=== PATIENT | female | born 1955 | race Caucasian/White ===

== ENCOUNTER 2025-04-18 03:46 | Inpatient (IN) | payer MEDICARE, MEDICAID ==
[~2025-04-18] VITALS: Ht 167.6 cm; Wt 86.1 kg
[2025-04-18] VITALS (14 sets, daily range): BP systolic 100–131; BP diastolic 61–83; PULSE 83–102; RESP 14–20; TEMP 96.6–99.9; O2SAT 92–99
[~2025-04-18 03:46] MED LIST: ANAS1TAB7 PO; CITA40TA12; GABA-339 PO; OMEP-448; PRAV20TA3; QUET100T47 PO; ROPI2TAB27 PO; TIOTCAP INH; TRAZ-228; VALS1TAB57 PO
[2025-04-18] MEDS ORDERED: LACTATED RINGER'S 1,550 ML IV ONE (04:00)
--- NOTE | 2025-04-18 04:04 | ED.PDOC ---
SOB-HPI HPI Comments 69-year-old female who came via EMS for shortness of breath. Patient does have history of hypertension, CHF and COPD. Has been having productive cough and shortness a breath for the past few hours, progressively worsening prompted patient to come to the ER. Noted also mild grade fever. Denies any acute chest pains. Paramedics also report patient has a fever with them, 101 Chief Complaint: Shortness of Breath Time Seen by MD: 04:04 Primary Care Provider: ASCENCION Rodríguez notes: Scheduling Representative Notes Information Source: Patient, Emergency Med Personnel Mode of Arrival: EMS Severity: Moderate Timing: Hours Duration: Intermittent Context: At Rest, With Light Exertion History of: COPD, CHF Prehospital treatment: Breathing Tx Associated Signs and Symptoms: Wheeze, Cough Past Medical History PAST MEDICAL HISTORY: Anxiety, COPD, Depression, HTN Past Medical History (Other): Bipolar disorder Surgical History: Denies all surgeries ASSISTIVE TECHNOLOGY TRAINER History: No Pertinent ASSISTIVE TECHNOLOGY TRAINER History Family History Family History: Unobtainable Social History Smoker: Cigarettes, Less Than 1 Pack/Day Alcohol: Denies ETOH Use Drugs: Denies Drug Use Lives In: Home Constitutional: reports: fever; denies: chills, diaphoresis, fatigue, malaise, sweats, weakness, others EENTM: denies: blurred vision, double vision, ear bleeding, ear discharge, ear drainage, ear pain, ear ringing, eye pain, eye redness, hearing loss, mouth pain, mouth swelling, nasal discharge, nose bleeding, nose congestion, nose pain, photophobia, tearing, throat pain, throat swelling, voice changes, others Respiratory: reports: cough, SOB at rest, shortness of breath, wheezing; denies: hemoptysis, orthopnea, SOB with excertion, stridor, others Cardiovascular: denies: chest pain, dizzy spells, diaphoresis, Dyspnea on exertion, edema, irregular heart beat, left arm pain, lightheadedness, palpitations, PND, syncope, others Gastrointestinal: denies: abdomen distended, abdominal pain, blood streaked bowels, constipated, diarrhea, dysphagia, difficulty swallowing, hematemesis, melena, nausea, poor appetite, poor fluid intake, rectal bleeding, rectal pain, vomiting, others Genitourinary: denies: abnormal vagina bleeding, burning, dyspareunia, dysuria, flank pain, frequency, hematuria, incontinence, pain, , vagina discharge, urgency, others Neurological: denies: dizziness, fainting, headache, left sided numbness, left sided weakness, numbness, paresthesia, pre-existing deficit, right sided numbness, right sided weakness, seizure, speech problems, tingling, tremors, weakness, others Musculoskeletal: denies: back pain, gout, joint pain, joint swelling, muscle pain, muscle stiffness, neck pain, others Integumetry: denies: bruises, change in color, change in hair/nails, dryness, laceration, lesions, lumps, rash, wounds, others Allergic/Immunocompromised: denies: Difficulty Healing, Frequent Infections, Hives, Itching, others Hematologic/Lymphatic: denies: anemia, blood clots, easy bleeding, easy bruising, swollen glands, others Endocrine: denies: excessive hunger, excessive sweating, excessive thirst, excessive urination, flushing, intolerance to cold, intolerance to heat, unexplained weight gain, unexplained weight loss, others Psychiatric: denies: anxiety, bipolar disorder, depression, hopeless, panic disorder, schizophrenia, sleepless, suicidal, others Physical Exam General Appearance: No Apparent Distress, Normal HEENT: Normal ENT Inspection, Pharynx Normal, TMs Normal Neck: Full Range of Motion, Non-Tender, Normal, Normal Inspection Respiratory: Chest Non-Tender, No Accessory Muscle Use, No Respiratory Distress, Wheezing (Right lung) Cardiovascular: No Edema, No JVD, No Murmur, No Gallop, Normal Peripheral Pulses, Regular Rate/Rhythm Breast Exam: Deferred Gastrointestinal: No Organomegaly, Non Tender, No Pulsatile Mass, Normal Bowel Sounds, Soft Genitalia: Deferred Pelvic: Deferred Rectal: Deferred Extremities: No calf tenderness, Normal capillary refill, Normal inspection, Normal range of motion, Non-tender, No pedal edema Musculoskeletal : Apperance: Normal Neurologic: Alert, investment broker II-XII nml as Tested, No Motor Deficits, Normal Affect, Normal Mood, No Sensory Deficits Cerebellar Function: Normal Reflexes: Normal Skin: Dry, Normal Color, Warm Lymphatic: No Adenopathy EKG EKG : Pulse Rate (adult): 99 Cardiac Rhythm: NSR Was a procedure done? Was a procedure done?: No Differential Dx Differential Diagnosis: Asthma, Bronchitis, CHF, COPD, Myocardial infarction, Pneumonia, Respiratory Distress X-Ray, Labs, Meds, VS Vital Signs Date Time Temp Pulse Resp B/P (MAP) Pulse Ox O2 Delivery O2 Flow Rate FiO2 04/18/25 04:22 102 20 97 Nasal Cannula* 4 36 04/18/25 04:22 99.9 102 20 121/83 (96) 98 99.9 04/18/25 04:04 99 04/18/25 03:56 99.0 97 20 136/62 96 99.0 04/18/25 03:55 99 Lab Test 04/18/25 04:00 Range/Units White Blood Count 9.3 4.4-10.8 10^3/uL Red Blood Count 3.64 L 4.0-5.20 10^6/uL Hemoglobin 10.3 L 12.2-16.2 g/dL Hematocrit 32.2 L 36.0-46.0 % Mean Corpuscular Volume 88.3 80.0-100.0 fL Mean Corpuscular Hemoglobin 28.2 28.0-32.0 pg Mean Corpuscular Hemoglobin Concent 31.9 L 32.0-36.0 g/dL Red Cell Distribution Width 16.0 H 11.8-14.3 % Platelet Count 266 140-450 10^3/uL Mean Platelet Volume 6.8 L 6.9-10.8 fL Neutrophils (%) (Auto) 69.3 37.0-80.0 % Lymphocytes (%) (Auto) 21.6 10.0-50.0 % Monocytes (%) (Auto) 5.9 0.0-12.0 % Eosinophils (%) (Auto) 3.0 0.0-7.0 % Basophils (%) (Auto) 0.2 0.0-2.0 % Neutrophils # (Auto) 6.5 1.6-8.6 10 ^3/uL Lymphocytes # (Auto) 2.0 0.4-5.4 10 ^3/uL Monocytes # (Auto) 0.5 0-1.3 10 ^3/uL Eosinophils # (Auto) 0.3 0-0.8 10 ^3/uL Basophils # (Auto) 0 0-0.2 10 ^3/uL Nucleated Red Blood Cells 0.1 % Prothrombin Time 10.5 9.3-11.8 sec Prothrombin Time INR 0.99 0.9-1.15 Activated Partial Thromboplast Time 28.6 24.5-34.5 SEC Sodium Level 144 136-145 mmol/L Potassium Level 4.5 3.5-5.1 mmol/L Chloride Level 102 98-107 mmol/L Carbon Dioxide Level 37 H 20-31 mmol/L Anion Gap 5 5-15 Blood Urea Nitrogen 29 H 9-23 mg/dL Creatinine 1.14 H 0.550-1.02 mg/dL Glomerular Filtration Rate Calc 51 >90 mL/min BUN/Creatinine Ratio 25.4 H 10.0-20.0 Serum Glucose 106 74-106 mg/dL Lactic Acid Level 0.8 0.4-2.0 mmol/L Calcium Level 9.5 8.7-10.4 mg/dL Total Bilirubin < 0.2 L 0.2-1.0 mg/dL Aspartate Amino Transferase (AST) 14 13-40 U/L Alanine Aminotransferase (ALT) 9 7-40 U/L Alkaline Phosphatase 90 46-116 U/L Total Protein 7.0 5.7-8.2 g/dL Albumin 4.2 3.2-4.8 g/dL Time of 1ST Reevaluation: 03:59 Reevaluation 1ST: Unchanged Patient Education/Counseling: Diagnosis, Treatment Family Education/Counseling: No Family Present SEPSIS Sepsis Screen Recent Procedure: No On Antibiotic Therapy: No Respiratory Rate >20: Yes Heart Rate >90: Yes Temp<36 C (96.8 F) or >38.3 C: No SBP <90 or MAP <65 mmHG: No New Acute Mental Status Change: Yes Is the patient on CPAP, BIPAP,: No IV fluid challenge completed?: No (pt has chf, is volume overloaded, so ivf held) Physician Orders Urinalysis (04/18/25 03:50) Chest Portable (04/18/25 03:50) Accucheck (04/18/25 03:50) Blood Culture (04/18/25 03:50) Cefepime 1gm/50ml (Maxipime 1gm/50ml) (04/18/25 06:00) Notify Md If Map <65 Or Bp<90 (04/18/25 03:50) If Map<65 Start Vasopressor (04/18/25 03:50) Sepsis Reassesment After Fluid (04/18/25 04:50) Electrocardigram (04/18/25 03:58) Vital Signs Date Time Temp Pulse Resp B/P (MAP) Pulse Ox O2 Delivery O2 Flow Rate FiO2 04/18/25 04:22 102 20 97 Nasal Cannula* 4 36 04/18/25 04:22 99.9 102 20 121/83 (96) 98 99.9 04/18/25 04:04 99 04/18/25 03:56 99.0 97 20 136/62 96 99.0 04/18/25 03:55 99 Laboratory Tests Test 04/18/25 04:00 Lactic Acid Level 0.8 mmol/L (0.4-2.0) White Blood Count 9.3 10^3/uL (4.4-10.8) Reassessment Post Fluid SEPSIS FOCUS EXAM(REASSESSMENT pt did not have a fever here, nor any vss that fits SIRS Date of Reassessment: Apr 18, 2025 Time of Reassessment: 04:47 Pulse Location: Radial Pulse Strength: Normal Capillary Refill Exam: < 3 seconds Skin Temperature: Warm Skin Moisture: Dry Skin Tugor: WNL Skin Color: WNL Fingernail Color: WNL Departure 1 Departure Time of Disposition: 04:48 Impression: Primary Impression: CHF (congestive heart failure) Qualified Codes: I50.43 - Acute on chronic combined systolic (congestive) and diastolic (congestive) heart failure Disposition: ADMITTED INPATIENT Admit to: [facility] Condition: Stable Discharged With: Self Critical Care Note Critical Care Time?: Yes (55 min-critical care time only) Critical care comment: Shortness a breath Due to patient's altered mental status in paramedics complain that the patient had a fever with them in addition patient has had a cough sepsis order were initiated immediately upon patient's arrival. However on examination patient does have some rales in addition to the wheezes suggesting CHF. Patient has a history of CHF as well, therefore sepsis IV fluid bolus was held Due to concerns for patients condition deteriorating, the care required my highest level of attention and readiness to intervene. I assessed the patient, reviewed the medical records, ordered the appropriate tests and treatments, then reassessed for results and responsiveness. I communicated with medical personnel and consultants and formulated a plan of care. Total critical care time excludes any procedures Stability Stability form required: No Heart Score Heart Score: Heart Score Response (Comments) Value History Moderate Suspicious 1 EKG Normal 0 Age >65 2 Risk Factors >3 or Hx ASHD 2 Troponin Normal limit 0 Total 5 I personally scribed for PAMELA BAHENA MD ([facility]) on 04/18/25 at 04:04. Electronically submitted by Lalo Fagan ([facility]). PAMELA BAHENA MD Apr 18, 2025 04:04
[2025-04-18 04:23] LABS: Hematocrit 32.2 % (36.0-46.0); Hemoglobin 10.3 g/dL (12.2-16.2); Mean Corpuscular Hemoglobin 28.2 pg (28.0-32.0); Mean Corpuscular Volume 88.3 fL (80.0-100.0); Nucleated Red Blood Cells % 0.1 %
--- NOTE | 2025-04-18 04:30 | DVH ---
CHEST RADIOGRAPH Indication: sob Technique: Single frontal view of the chest was obtained COMPARISON: XR CHEST 1 VIEW on DOS: 01/06/25, CT CT ANGIO CHEST CONTRAST on DOS: 04/13/24, XY CHEST XRAY 1 VIEW on DOS: 04/11/24, XY CHEST PORTABLE on DOS: 04/08/24, XR CHEST 1 VIEW on DOS: 03/28/24 FINDINGS: Lines and Tubes: None Lungs: Diffuse increased prominence of the pulmonary vasculature. No evidence of focal consolidation . Pleura: No effusion. No pneumothorax. Cardiomediastinal contours: Unremarkable Bones: Unremarkable IMPRESSION: 1. Mild pulmonary vascular congestion.
[2025-04-18 04:40] LABS: Albumin 4.2 g/dL (3.2-4.8); Alkaline Phosphatase 90 U/L (46-116); Anion Gap 5 (5-15); BUN/Creatinine Ratio 25.4 (10.0-20.0); Calcium 9.5 mg/dL (8.7-10.4); Chloride 102 mmol/L (98-107); INR 0.99 (0.9-1.15); Partial Thromboplastin Time 28.6 SEC (24.5-34.5); Potassium 4.5 mmol/L (3.5-5.1); Prothrombin Time 10.5 sec (9.3-11.8); Sodium 144 mmol/L (136-145); Total Protein 7.0 g/dL (5.7-8.2)
[2025-04-18 04:44] LABS: Alanine Aminotransferase 9 U/L (7-40); Bilirubin, Total < 0.2 mg/dL (0.2-1.0); Blood Urea Nitrogen 29 mg/dL (9-23); Carbon Dioxide 37 mmol/L (20-31); Glucose 106 mg/dL (74-106)
[2025-04-18] MEDS: FUROSEMIDE 40 MG/4 ML VIAL IV ONE (04:56)
[2025-04-18 05:25] LABS: Urine Protein, UAD TRACE (Negative); Urine WBC Clumps PRESENT /hpf (None Seen)
[2025-04-18] MEDS ORDERED: MORPHINE SULFATE INJ 2 MG/ml SYRG IV PRN (05:45)
[2025-04-18] MEDS ORDERED: NITROGLYCERIN 0.4 MG SL TAB SL PRN (05:45)
[2025-04-18] MEDS ORDERED: ONDANSETRON HCL 4 MG/2 ML VIAL IV PRN (05:45)
--- NOTE | 2025-04-18 05:59 | DVHHP2 ---
History of Present Illness Reason for Visit: COPD with acute exacerbation History of Present Illness The patient is a 69-year-old female with past medical history of depression, bipolar disorder, hypertension, anxiety, and COPD who presented to [facility] ED with complaint of shortness of breaths. Patient reports she has been has been having productive cough, weakness, low-grade fever, wheezing, and difficulty breathing for the past 1 day. Patient was seen and evaluated in the ED, laboratory data shows WBC 9.3, hemoglobin 10.3, hematocrit 32.2, platelets 266, sodium 144, potassium 4.5, BUN 29, creatinine 1.14, glucose 106, calcium 9.5, blood pressure 122/84, heart rate 102, temperature 99.9 F, O2 saturation 97% on oxygen. Urinalysis positive for urinary tract infection. Chest x-ray revealing mild pulmonary vascular congestion. Patient was started on IV Solu- Medrol, please see medication orders section in the computer. On my assessment, patient denied chest pain, no headache, no dizziness, currently on oxygen, no diaphoresis, no diarrhea, no nausea, no vomiting, no fever, no chills. Patient was admitted for further evaluation and medical management. Past Medical History Anxiety, COPD, Depression, HTN, Bipolar disorder Past Surgical History Denies all surgeries Family History Reviewed, noncontributory to the management of this case. Past Social History Patient lives at home, smokes cigarettes less than 1 pack per day, denies alcohol or illicit drugs abuse. Review of Systems Constitutional: Yes: Fever, Weakness; No: Chills, Sweats, Malaise, Other Eyes: No: Pain, Vision change, Conjunctivae inflammation, Eyelid inflammation, Other, Redness ENT: No: Ear pain, Ear discharge, Nose pain, Nose discharge, Nose congestion, Mouth pain, Mouth swelling, Throat pain, Throat swelling, Other Respiratory: Cough, Shortness of breath, Wheezing, Other (SOB at rest); No: Dry, SOB with excertion, Hemoptysis, Pleuritic Pain, Sputum, Wheezing Cardiovascular: No: Chest Pain, Palpitations, Orthopnea, Paroxysmal Noc. Dys pnea, Edema, Lt Headedness, Other Gastrointestinal: No: Nausea, Vomiting, Abdominal Pain, Diarrhea, Constipation, Melena, Hematochezia, Other Genitourinary: No Dysuria, No Frequency, No Incontinence, No Hematuria, No Retention, No Other Musculoskeletal: No: other, neck pain, shoulder pain, arm pain, back pain, hand pain, leg pain, foot pain Skin: No: Rash, Lesions, Jaundice, Bruising, Other Neurological: No: Weakness, Numbness, Incoordination, Change in speech, Confusion, Seizures, Other Allergies: Coded Allergies: NO KNOWN ALLERGIES (Unverified , 01/24/12) Medications Current Medications Medications Dose Ordered Sig/Arnold Route Start Time Stop Time Status Last Admin Dose Admin Cefepime HCl 50 ml @ 12.5 mls/hr Q8HR IV 04/18/25 06:00 UNV Exam Vital Signs Vital Signs Date Time Temp Pulse Resp B/P (MAP) Pulse Ox O2 Delivery O2 Flow Rate FiO2 04/18/25 04:56 121/68 04/18/25 04:22 102 20 97 Nasal Cannula* 4 36 04/18/25 04:22 99.9 99.9 General Appearance: Alert, Oriented X3, Cooperative, No acute distress HEENT: Atraumatic, PERRLA, EOMI, Mucous membr. moist/pink Respiratory: Normal air movement Cardiovascular: Regular rate, Normal S1, Normal S2, No murmurs Abdominal: Normal bowel sounds, Soft, No tenderness, No hepatospenomegaly, No masses Extremities: No clubbing, No cyanosis, No edema, Normal pulses, No tenderness/swelling Skin: No rashes, No breakdown, No significant lesion Neuro: Normal speech, Normal tone, Sensation intact, Cranial nerves 3-12 NL, Reflexes 2+, Other (Generalized weakness) Psych/Mental Status: Mental status NL, Mood NL Labs/Xrays Labs Test 04/18/25 05:02 04/18/25 04:00 Range/Units Urine Color Colorless Yellow Urine Clarity Turbid H Clear Urine pH 5.0 5.0-9.0 Urine Specific [place] 1.021 1.001-1.035 Urine Protein Trace H Negative Urine Ketones Negative Negative Urine Blood Negative Negative /uL Urine Nitrite Negative Negative Urine Bilirubin Negative Negative Urine Urobilinogen Normal Negative mg/dL Urine Leukocyte Esterase 2+ Negative /uL Urine RBC 12 0 - 4 /hpf Urine WBC Clumps Present None Seen /hpf Urine Microscopic WBC 386 H 0-5 /HPF Urine Squamous Epithelial Cells None seen <5 /hpf Urine Bacteria Few H None Seen /hpf Urine Glucose Normal Normal mg/dL White Blood Count 9.3 4.4-10.8 10^3/uL Red Blood Count 3.64 L 4.0-5.20 10^6/uL Hemoglobin 10.3 L 12.2-16.2 g/dL Hematocrit 32.2 L 36.0-46.0 % Mean Corpuscular Volume 88.3 80.0-100.0 fL Mean Corpuscular Hemoglobin 28.2 28.0-32.0 pg Mean Corpuscular Hemoglobin Concent 31.9 L 32.0-36.0 g/dL Red Cell Distribution Width 16.0 H 11.8-14.3 % Platelet Count 266 140-450 10^3/uL Mean Platelet Volume 6.8 L 6.9-10.8 fL Neutrophils (%) (Auto) 69.3 37.0-80.0 % Lymphocytes (%) (Auto) 21.6 10.0-50.0 % Monocytes (%) (Auto) 5.9 0.0-12.0 % Eosinophils (%) (Auto) 3.0 0.0-7.0 % Basophils (%) (Auto) 0.2 0.0-2.0 % Neutrophils # (Auto) 6.5 1.6-8.6 10 ^3/uL Lymphocytes # (Auto) 2.0 0.4-5.4 10 ^3/uL Monocytes # (Auto) 0.5 0-1.3 10 ^3/uL Eosinophils # (Auto) 0.3 0-0.8 10 ^3/uL Basophils # (Auto) 0 0-0.2 10 ^3/uL Nucleated Red Blood Cells 0.1 % Prothrombin Time 10.5 9.3-11.8 sec Prothrombin Time INR 0.99 0.9-1.15 Activated Partial Thromboplast Time 28.6 24.5-34.5 SEC Sodium Level 144 136-145 mmol/L Potassium Level 4.5 3.5-5.1 mmol/L Chloride Level 102 98-107 mmol/L Carbon Dioxide Level 37 H 20-31 mmol/L Anion Gap 5 5-15 Blood Urea Nitrogen 29 H 9-23 mg/dL Creatinine 1.14 H 0.550-1.02 mg/dL Glomerular Filtration Rate Calc 51 >90 mL/min BUN/Creatinine Ratio 25.4 H 10.0-20.0 Serum Glucose 106 74-106 mg/dL Lactic Acid Level 0.8 0.4-2.0 mmol/L Calcium Level 9.5 8.7-10.4 mg/dL Total Bilirubin < 0.2 L 0.2-1.0 mg/dL Aspartate Amino Transferase (AST) 14 13-40 U/L Alanine Aminotransferase (ALT) 9 7-40 U/L Alkaline Phosphatase 90 46-116 U/L Total Protein 7.0 5.7-8.2 g/dL Albumin 4.2 3.2-4.8 g/dL PATIENT: LALIT WHITE ACCT: [id number] UNIT: [id number] : 1955 LOC: ER ROOM / BED: / AGE / SEX: 69 / F ADM STATUS: REG ER SERVICE 9 ORDERING PHYSICIAN: PAMELA BAHENA MD PROCEDURE(s): CXRP - CHEST PORTABLE REASON: sob ORDER NUMBER(s): [id number], ACCESSION NUMBER(s): [id number] CHEST RADIOGRAPH Indication: sob Technique: Single frontal view of the chest was obtained COMPARISON: XR CHEST 1 VIEW on DOS: 01/06/25, CT CT ANGIO CHEST CONTRAST on DOS: 04/13/24, XY CHEST XRAY 1 VIEW on DOS: 04/11/24, XY CHEST PORTABLE on DOS: 04/08/24, XR CHEST 1 VIEW on DOS: 03/28/24 FINDINGS: Lines and Tubes: None Lungs: Diffuse increased prominence of the pulmonary vasculature. No evidence of focal consolidation. Pleura: No effusion. No pneumothorax. Cardiomediastinal contours: Unremarkable Bones: Unremarkable IMPRESSION: 1. Mild pulmonary vascular congestion. SEPSIS Sepsis Screen Date sepsis recognized/suspect: Apr 18, 2025 Time Sepsis recognized/suspect: 423 Recent Procedure: No On Antibiotic Therapy: No Respiratory Rate >20: No Heart Rate >90: No Temp<36 C (96.8 F) or >38.3 C: No SBP <90 or MAP <65 mmHG: No New Acute Mental Status Change: No Is the patient on CPAP, BIPAP,: No IV fluid challenge completed?: No (pt has chf, is volume overloaded, so ivf held) Physician Orders Chest Portable (04/18/25 03:50) Accucheck (04/18/25 03:50) Blood Culture (04/18/25 03:50) Cefepime 1gm/50ml (Maxipime 1gm/50ml) (04/18/25 06:00) Notify Md If Map <65 Or Bp<90 (04/18/25 03:50) If Map<65 Start Vasopressor (04/18/25 03:50) Sepsis Reassesment After Fluid (04/18/25 04:50) Electrocardigram (04/18/25 03:58) Insert/Manage Urinary Catheter QSHIFT (04/18/25 04:47) B-Type Natriuretic Peptide (04/18/25 05:39) Urine Bacterial Culture (04/18/25 05:39) Complete Blood Count (04/18/25 05:39) Comprehensive Metabolic Panel (04/18/25 05:39) Methylprednisolone Sod Succ (Solu Medrol (04/18/25 05:45) Methylprednisolone Sod Succ (Solu Medrol (04/18/25 06:00) Famotidine Injection (Pepcid Injection) (04/18/25 10:00) Atorvastatin (Lipitor) (04/18/25 22:00) Gabapentin Capsule (Neurontin Capsule) (04/18/25 06:00) Levalbuterol Hcl (Xopenex Medneb) (04/18/25 06:00) Lorazepam 2mg/Ml Inj (Ativan Inj) (04/18/25 05:45) Admit (04/18/25 05:39) Allergies (04/18/25 05:39) Code Status (04/18/25 05:39) Sodium Chloride Lock (Saline Lock Ns) (04/18/25 06:00) Oxygen Per Hour (04/18/25 05:39) Hydrocodone-Acet 5/325mg Tab (Summit 5/32 (04/18/25 05:45) Ondansetron Hcl (Zofran) (04/18/25 05:45) Docusate Sodium Capsule (Colace Capsule) (04/18/25 05:45) Complete Blood Count (04/19/25 04:00) Comprehensive Metabolic Panel (04/19/25 04:00) Cardiac Diet-2gna,Lofat,Lochol (04/18/25 Breakfast) Condition: Serious (04/18/25 05:39) Acetaminophen Tablet (Tylenol Tablet) (04/18/25 05:45) Bedrest With Bathroom Privileg (04/18/25 05:39) Sequential Compression Device (04/18/25 ) Nitroglycerin Sublingual (Ntrostat Subli (04/18/25 05:45) Morphine Sulfate Injection (04/18/25 05:45) Stat Ekg For Chest Pain (04/18/25 05:39) Notify Of Changes From Base (04/18/25 05:39) Loan Auditor For 24 Hours (04/18/25 05:39) Emergency Dysrhythmia Protocol (04/18/25 05:39) Rhythm Strips Once Every Shift (04/18/25 05:39) Oxygen By Nasal Cannula (04/18/25 05:39) Vital Signs Date Time Temp Pulse Resp B/P (MAP) Pulse Ox O2 Delivery O2 Flow Rate FiO2 04/18/25 04:56 121/68 04/18/25 04:22 102 20 97 Nasal Cannula* 4 36 04/18/25 04:22 99.9 102 20 121/83 (96) 98 99.9 04/18/25 04:04 99 04/18/25 03:56 99.0 97 20 136/62 96 99.0 04/18/25 03:55 99 Laboratory Tests Test 04/18/25 04:00 Lactic Acid Level 0.8 mmol/L (0.4-2.0) White Blood Count 9.3 10^3/uL (4.4-10.8) Medications Medications Dose Ordered Sig/Arnold Route Start Time Stop Time Status Last Admin Dose Admin Furosemide 40 mg ONCE ONCE IV 04/18/25 05:00 04/18/25 05:01 DC 04/18/25 04:56 40 MG Reassessment Post Fluid Date of Reassessment: Apr 18, 2025 Time of Reassessment: 04:47 Pulse Location: Radial Pulse Strength: Normal Capillary Refill Exam: < 3 seconds Skin Temperature: Warm Skin Moisture: Dry Skin Tugor: WNL Skin Color: WNL Fingernail Color: WNL Assessment/Plan Assessment/Plan COPD with acute exacerbation Fever, unspecified Urinary tract infection Generalized weakness Plan 1. Admit to telemetry units 2. Breathing treatment 3. Pain control management 4. IV antibiotic management 5. Management of fluids and electrolytes 6. Consultation for hospitalist 7. Diagnostic test chest x-ray 8. DVT prophylaxis-on SCDs 9. Repeat labs CBC, CMP in a.m. 10. Home medication reviewed and reconciled 11. Continue with current medical management 12. Treatment plan discussed with patient and RN. Patient verbalized understanding. Plan discussed with: Patient, Other (RN) My Orders Orders - DALY PANTOJA DNP Procedure Category Date Status Time B-Type Natriuretic LAB 04/18/25 Logged Peptide 05:39 Urine Bacterial PEDRO LUIS 04/18/25 Verified Culture 05:39 Complete Blood Count LAB 04/18/25 Verified 05:39 Comprehensive LAB 04/18/25 Verified Metabolic Panel 05:39 Methylprednisolone PHA 04/18/25 Verified Sod Succ (Solu Medrol 05:45 Methylprednisolone PHA 04/18/25 Verified Sod Succ (Solu Medrol 06:00 Famotidine Injection PHA 04/18/25 Verified (Pepcid Injection) 10:00 Atorvastatin (Lipitor) PHA 04/18/25 Verified 22:00 Gabapentin Capsule PHA 04/18/25 Verified (Neurontin Capsule) 06:00 Levalbuterol Hcl PHA 04/18/25 Verified (Xopenex Medneb) 06:00 Lorazepam 2mg/Ml Inj PHA 04/18/25 Verified (Ativan Inj) 05:45 Admit ADMIT 04/18/25 Verified 05:39 Allergies TELLO 04/18/25 Verified 05:39 Code Status CODE 04/18/25 Verified 05:39 Sodium Chloride Lock PHA 04/18/25 Verified (Saline Lock Ns) 06:00 Oxygen Per Hour RT 04/18/25 Verified 05:39 Hydrocodone-Acet PHA 04/18/25 Verified 5/325mg Tab (Summit 05:45 Ondansetron Hcl PHA 04/18/25 Verified (Zofran) 05:45 Docusate Sodium PHA 04/18/25 Verified Capsule (Colace 05:45 Complete Blood Count LAB 04/19/25 Verified 04:00 Comprehensive LAB 04/19/25 Verified Metabolic Panel 04:00 Cardiac DIET 04/18/25 Verified Diet-2gna,Lofat,Lochol Breakfast Condition: Serious TELLO 04/18/25 Verified 05:39 Acetaminophen Tablet PHA 04/18/25 Verified (Tylenol Tablet) 05:45 Bedrest With Bathroom TELLO 04/18/25 Verified Privileg 05:39 Sequential TELLO 04/18/25 Verified Compression Device Nitroglycerin [facility] 04/18/25 Verified Sublingual (Ntrostat 05:45 Morphine Sulfate [facility] 04/18/25 Verified Injection 05:45 Stat Ekg For Chest [facility] 04/18/25 Verified Pain 05:39 Notify Md Of Changes [facility] 04/18/25 Verified From Base 05:39 Loan Auditor For [facility] 04/18/25 Verified 24 Hours 05:39 Emergency Dysrhythmia [facility] 04/18/25 Verified Protocol 05:39 Rhythm Strips Once [facility] 04/18/25 Verified Every Shift 05:39 Oxygen By Nasal 04/18/25 Verified Cannula 05:39 Problem List: (1) COPD with acute exacerbation (2) Fever, unspecified (3) Urinary tract infection (4) Generalized weakness Date of Service: Apr 18, 2025 Billing Provider: DALY PANTOJA DNP Common Visit Codes: [id number] INP/OBS CARE (HIGH) DALY PANTOJA DNP Apr 18, 2025 05:59
[2025-04-18] MEDS: SODIUM CHLOR 0.9% PF (SALINE LOCK) 10ML VIAL/SYR IV SCH (06:03)
[2025-04-18] MEDS: methylPREDNISolone SOD SUCC 125 MG/2 ML VL IV ONE (06:03)
[2025-04-18] MEDS: GABAPENTIN 300 MG CAP PO SCH (06:03)
[2025-04-18] MEDS: CEFEPIME 1GM/50ML 50 ML IV SCH (06:03)
[2025-04-18] MEDS: LEVALBUTEROL HCL 1.25 MG/3 ML NEB NEB SCH (06:13)
[2025-04-18 06:39] LABS: Hematocrit 32.5 % (36.0-46.0); Hemoglobin 10.7 g/dL (12.2-16.2); Mean Corpuscular Hemoglobin 28.9 pg (28.0-32.0); Mean Corpuscular Volume 87.7 fL (80.0-100.0); Nucleated Red Blood Cells % 0.1 %
[2025-04-18 06:58] LABS: Alanine Aminotransferase 10 U/L (7-40); Albumin 4.4 g/dL (3.2-4.8); Alkaline Phosphatase 92 U/L (46-116); Anion Gap 8 (5-15); BUN/Creatinine Ratio 27.1 (10.0-20.0); Calcium 9.8 mg/dL (8.7-10.4); Chloride 100 mmol/L (98-107); Glucose 102 mg/dL (74-106); Potassium 4.3 mmol/L (3.5-5.1); Sodium 144 mmol/L (136-145); Total Protein 7.4 g/dL (5.7-8.2)
[2025-04-18 06:59] LABS: Blood Urea Nitrogen 29 mg/dL (9-23); Carbon Dioxide 36 mmol/L (20-31)
[2025-04-18 07:00] LABS: Bilirubin, Total 0.2 mg/dL (0.2-1.0)
[2025-04-18] MEDS: FAMOTIDINE (10MG/ML) 2ML VL IV SCH (08:51)
[2025-04-18] MEDS ORDERED: ROPI5TAB17 PO (09:46)
[2025-04-18] MEDS: ACETAMINOPHEN 325 MG TAB PO PRN (09:47)
--- NOTE | 2025-04-18 13:12 | DVHPN2 ---
Reviewed: Care Plan, H&P, Medications, Previous Orders, Radiology Changes from previous H/P or p: No Changes Eyes: No Pain, No Vision change, No Conjunctivae inflammation, No Eyelid inflammation, No Other, No Redness ENT: No Ear pain, No Ear discharge, No Nose pain, No Nose discharge, No Nose congestion, No Mouth pain, No Mouth swelling, No Throat pain, No Throat swelling, No Other Cardiovascular: No Chest Pain, No Palpitations, No Orthopnea, No Paroxysmal Noc. Dyspnea, No Edema, No Lt Headedness, No Other Respiratory: Cough; No Dry; Shortness of breath; No SOB with excertion; W heezing; No Hemoptysis, No Pleuritic Pain, No Sputum; Other (SOB at rest) Gastrointestinal: No Nausea, No Vomiting, No Abdominal Pain, No Diarrhea, No Constipation, No Melena, No Hematochezia, No Other Genitourinary: No Dysuria, No Frequency, No Incontinence, No Hematuria, No Retention, No Other Musculoskeletal: No other, No neck pain, No shoulder pain, No arm pain, No back pain, No hand pain, No leg pain, No foot pain Skin: No Rash, No Lesions, No Jaundice, No Bruising, No Other Objective Vitals Vital Signs Date Time Temp Pulse Resp B/P (MAP) Pulse Ox O2 Delivery O2 Flow Rate FiO2 04/18/25 12:58 92 14 106/61 (76) 96 04/18/25 09:00 98.9 98.9 04/18/25 08:46 Nasal Cannula* 3 32 Medications Current Medications Medications Dose Ordered Sig/Arnold Route Start Time Stop Time Status Last Admin Dose Admin Cefepime HCl 50 ml @ 12.5 mls/hr Q8HR IV 04/18/25 06:00 04/18/25 06:03 12.5 MLS/HR Methylprednisolone Sodium Succinate 40 mg Q8HR IV 04/18/25 14:00 Famotidine 20 mg Q12HR IV 04/18/25 10:00 04/18/25 08:51 20 MG Atorvastatin Calcium 20 mg HS PO 04/18/25 22:00 Gabapentin 300 mg TID PO 04/18/25 06:00 04/18/25 06:03 300 MG Levalbuterol HCl 0.625 mg Q6HR NEB 04/18/25 06:00 04/18/25 11:39 0.625 MG Lorazepam 0.5 mg Q8HP PRN IV 04/18/25 05:45 Sodium Chloride 10 ml Q8HR IV 04/18/25 06:00 04/18/25 06:03 10 ML Acetaminophen/ Hydrocodone Bitart 1 tab Q4HP PRN PO 04/18/25 05:45 Ondansetron HCl 4 mg Q4HP PRN IV 04/18/25 05:45 Docusate Sodium 100 mg BIDPRN PRN PO 04/18/25 05:45 Acetaminophen 650 mg Q6HP PRN PO 04/18/25 05:45 04/18/25 09:47 650 MG Nitroglycerin 0.4 mg Q5MINP PRN SL 04/18/25 05:45 Morphine Sulfate 2 mg Q30M PRN IV 04/18/25 05:45 Laboratory Results Laboratory Tests 04/18/25 06:04 Chemistry Test 04/18/25 04:00 04/18/25 06:04 Albumin 4.2 g/dL (3.2-4.8) 4.4 g/dL (3.2-4.8) Calcium Level 9.5 mg/dL (8.7-10.4) 9.8 mg/dL (8.7-10.4) Total Protein 7.0 g/dL (5.7-8.2) 7.4 g/dL (5.7-8.2) Coagulation Test 04/18/25 04:00 Prothrombin Time 10.5 sec (9.3-11.8) Prothrombin Time INR 0.99 (0.9-1.15) Activated Partial Thromboplast Time 28.6 SEC (24.5-34.5) Cardiac Markers Test 04/18/25 06:04 B-Type Natriuretic Peptide 10.65 pg/mL (0-100) LFT Test 04/18/25 04:00 04/18/25 06:04 Alanine Aminotransferase (ALT) 9 U/L (7-40) 10 U/L (7-40) Alkaline Phosphatase 90 U/L (46-116) 92 U/L (46-116) Aspartate Amino Transferase (AST) 14 U/L (13-40) 15 U/L (13-40) Total Bilirubin < 0.2 mg/dL (0.2-1.0) L 0.2 mg/dL (0.2-1.0) Urinalysis Test 04/18/25 05:02 Urine Color Colorless (Yellow) Urine Clarity Turbid (Clear) H Urine pH 5.0 (5.0-9.0) Urine Specific [place] 1.021 (1.001-1.035) Urine Protein Trace (Negative) H Urine Ketones Negative (Negative) Urine Blood Negative /uL (Negative) Urine Nitrite Negative (Negative) Urine Bilirubin Negative (Negative) Urine Urobilinogen Normal mg/dL (Negative) Urine Leukocyte Esterase 2+ /uL (Negative) Urine RBC 12 /hpf (0 - 4) Urine WBC Clumps Present /hpf (None Seen) Urine Microscopic WBC 386 /HPF (0-5) H Urine Squamous Epithelial Cells None seen /hpf (<5) Urine Bacteria Few /hpf (None Seen) H Urine Glucose Normal mg/dL (Normal) Labs and/or images reviewed: Labs reviewed by me, Image(s) reviewed by me Assessment/Plan Assessment/Plan Sepsis secondary to urinary tract infection: Blood cultures urine cultures Rocephin Acute COPD exacerbation: Albuterol Atrovent Solu-Medrol Acute generalized weakness Acute urinary tract infection: Hypotension Depression Bipolar Anxiety Acute dehydration: IV fluids Time spent 70 minutes Advanced care planning time 20 minutes Patient is full code Plan discussed with: Patient My Orders Orders - AIDEN MARTINEZ MD Procedure Category Date Status Time Covid19 Antigen Jessie LAB 04/18/25 Logged Rapid Influenza A&B LAB 04/18/25 Logged 13:09 Date of Service: Apr 18, 2025 Billing Provider: AIDEN MARTINEZ MD Common Visit Codes: [id number] CARE 30-74 MIN AIDEN MARTINEZ MD Apr 18, 2025 13:12
[2025-04-18] MEDS: methylPREDNISolone SOD SUCC 40 MG/ML VL IV SCH (14:00)
[2025-04-18 14:39] LABS: COVID19 ANTIGEN SOFIA FIA NEGATIVE (NEGATIVE)
[2025-04-18] MEDS: ATORVASTATIN 20 MG TAB PO SCH (21:26)
[2025-04-18] MEDS: DOCUSATE SOD 100 MG CAP PO PRN (21:45)
[2025-04-18] MEDS: LORazepam 2MG/ML-1ML VIAL IV PRN (21:46)
[2025-04-19] VITALS (14 sets, daily range): BP systolic 121–152; BP diastolic 73–95; PULSE 21–96; RESP 16–95; TEMP 97.7–98.8; O2SAT 93–100
[2025-04-19 07:19] LABS: Hematocrit 32.9 % (36.0-46.0); Hemoglobin 10.7 g/dL (12.2-16.2); Mean Corpuscular Hemoglobin 28.3 pg (28.0-32.0); Mean Corpuscular Volume 87.6 fL (80.0-100.0); Nucleated Red Blood Cells % 0.0 %
[2025-04-19 07:41] LABS: Albumin 4.1 g/dL (3.2-4.8); Alkaline Phosphatase 80 U/L (46-116); Anion Gap 9 (5-15); BUN/Creatinine Ratio 32.6 (10.0-20.0); Calcium 9.7 mg/dL (8.7-10.4); Chloride 101 mmol/L (98-107); Potassium 4.3 mmol/L (3.5-5.1); Sodium 144 mmol/L (136-145); Total Protein 7.0 g/dL (5.7-8.2)
[2025-04-19 07:48] LABS: Alanine Aminotransferase 9 U/L (7-40); Bilirubin, Total 0.2 mg/dL (0.2-1.0); Blood Urea Nitrogen 28 mg/dL (9-23); Carbon Dioxide 34 mmol/L (20-31); Glucose 150 mg/dL (74-106)
--- NOTE | 2025-04-19 10:01 | DVHPN2 ---
Reviewed: Care Plan, H&P, Medications, Previous Orders, Radiology Changes from previous H/P or p: No Changes Eyes: No Pain, No Vision change, No Conjunctivae inflammation, No Eyelid inflammation, No Other, No Redness ENT: No Ear pain, No Ear discharge, No Nose pain, No Nose discharge, No Nose congestion, No Mouth pain, No Mouth swelling, No Throat pain, No Throat swelling, No Other Cardiovascular: No Chest Pain, No Palpitations, No Orthopnea, No Paroxysmal Noc. Dyspnea, No Edema, No Lt Headedness, No Other Respiratory: Cough; No Dry; Shortness of breath; No SOB with excertion; W heezing; No Hemoptysis, No Pleuritic Pain, No Sputum; Other (SOB at rest) Gastrointestinal: No Nausea, No Vomiting, No Abdominal Pain, No Diarrhea, No Constipation, No Melena, No Hematochezia, No Other Genitourinary: No Dysuria, No Frequency, No Incontinence, No Hematuria, No Retention, No Other Musculoskeletal: No other, No neck pain, No shoulder pain, No arm pain, No back pain, No hand pain, No leg pain, No foot pain Skin: No Rash, No Lesions, No Jaundice, No Bruising, No Other Objective Vitals Vital Signs Date Time Temp Pulse Resp B/P (MAP) Pulse Ox O2 Delivery O2 Flow Rate FiO2 04/19/25 09:00 97.8 96 18 152/84 (106) 96 97.8 04/19/25 07:04 Nasal Cannula* 3 32 Intake/Output Intake and Output 04/19/25 07:00 Intake Total 600 ml Output Total 2400 ml Balance -1800 ml Intake Oral 600 ml Output Urine Total 2400 ml Medications Current Medications Medications Dose Ordered Sig/Arnold Route Start Time Stop Time Status Last Admin Dose Admin Methylprednisolone Sodium Succinate 40 mg Q8HR IV 04/18/25 14:00 04/19/25 06:48 40 MG Famotidine 20 mg Q12HR IV 04/18/25 10:00 04/19/25 09:38 20 MG Atorvastatin Calcium 20 mg HS PO 04/18/25 22:00 04/18/25 21:26 20 MG Gabapentin 300 mg TID PO 04/18/25 06:00 04/19/25 06:48 300 MG Levalbuterol HCl 0.625 mg Q6HR NEB 04/18/25 06:00 04/19/25 07:40 0.625 MG Lorazepam 0.5 mg Q8HP PRN IV 04/18/25 05:45 04/18/25 21:46 0.5 MG Sodium Chloride 10 ml Q8HR IV 04/18/25 06:00 04/19/25 06:47 10 ML Acetaminophen/ Hydrocodone Bitart 1 tab Q4HP PRN PO 04/18/25 05:45 Ondansetron HCl 4 mg Q4HP PRN IV 04/18/25 05:45 Docusate Sodium 100 mg BIDPRN PRN PO 04/18/25 05:45 04/18/25 21:45 100 MG Acetaminophen 650 mg Q6HP PRN PO 04/18/25 05:45 04/18/25 09:47 650 MG Nitroglycerin 0.4 mg Q5MINP PRN SL 04/18/25 05:45 Morphine Sulfate 2 mg Q30M PRN IV 04/18/25 05:45 Ceftriaxone Sodium 50 ml @ 100 mls/hr DAILY@09 IV 04/19/25 09:00 04/19/25 09:38 100 MLS/HR Trazodone HCl 100 mg HS PO 04/18/25 22:17 04/19/25 01:34 100 MG Quetiapine Fumarate 100 mg HS PO 04/18/25 22:17 04/19/25 01:35 100 MG Laboratory Results Laboratory Tests 04/19/25 06:50 Chemistry Test 04/19/25 06:50 Albumin 4.1 g/dL (3.2-4.8) Calcium Level 9.7 mg/dL (8.7-10.4) Total Protein 7.0 g/dL (5.7-8.2) LFT Test 04/19/25 06:50 Alanine Aminotransferase (ALT) 9 U/L (7-40) Alkaline Phosphatase 80 U/L (46-116) Aspartate Amino Transferase (AST) 14 U/L (13-40) Total Bilirubin 0.2 mg/dL (0.2-1.0) Urinalysis Test 04/18/25 05:02 Urine Color Colorless (Yellow) Urine Clarity Turbid (Clear) H Urine pH 5.0 (5.0-9.0) Urine Specific [place] 1.021 (1.001-1.035) Urine Protein Trace (Negative) H Urine Ketones Negative (Negative) Urine Blood Negative /uL (Negative) Urine Nitrite Negative (Negative) Urine Bilirubin Negative (Negative) Urine Urobilinogen Normal mg/dL (Negative) Urine Leukocyte Esterase 2+ /uL (Negative) Urine RBC 12 /hpf (0 - 4) Urine WBC Clumps Present /hpf (None Seen) Urine Microscopic WBC 386 /HPF (0-5) H Urine Squamous Epithelial Cells None seen /hpf (<5) Urine Bacteria Few /hpf (None Seen) H Urine Glucose Normal mg/dL (Normal) Microbiology Microbiology Date/Time Source Procedure Growth Status 04/18/25 04:00 Blood Blood Culture - Preliminary NO GROWTH AFTER 24 HOURS OF INCUBATION. Resulted Labs and/or images reviewed: Labs reviewed by me, Image(s) reviewed by me Assessment/Plan Assessment/Plan Sepsis secondary to urinary tract infection: Blood cultures negative, urine cultures pending, continue Rocephin Acute COPD exacerbation: Albuterol Atrovent Solu-Medrol Acute generalized weakness Acute urinary tract infection: Acute Hypotension secondary to sepsis Depression Bipolar Anxiety Acute dehydration: IV fluids Time spent 50 minutes Advanced care planning time 20 minutes Patient is full code Patient Came from [facility] Plan discussed with: Patient My Orders Orders - AIDEN MARTINEZ MD Procedure Category Date Status Time Ceftriaxone 1gm/50ml PHA 04/19/25 In Process (Rocephin) 09:00 Communication Order ORDERS 04/18/25 Transmitted 15:02 Date of Service: Apr 19, 2025 Billing Provider: AIDEN MARTINEZ MD Common Visit Codes: [id number] INP/OBS CARE(HIGH) AIDEN MARTINEZ MD Apr 19, 2025 10:01
[2025-04-19] MEDS: HYDROcodone-ACET 5/325MG TAB PO PRN (13:53)
[2025-04-20] VITALS (12 sets, daily range): BP systolic 121–150; BP diastolic 68–79; PULSE 58–91; RESP 16–20; TEMP 36.8; O2SAT 91–98
--- NOTE | 2025-04-20 08:20 | ECG ---
[facility] Test Date: 2025-04-18 Test Time: 03:55:39 Pat Name: LALIT WHITE Department: ED Room: [facility]0T B Gender: F Health Promotion Officer: : 1955 Requested By: PAMELA BAHENA Order Number: [id number] Reading MD: Maikel Vila Measurements Intervals [place] Rate: 99 P: 71 CO: 140 QRS: 76 QRSD: 91 T: 56 QT: 326 QTc: 419 Interpretive Statements Sinus rhythm Electronically Signed On 04-22-2025 9:29:53 PDT by Maikel Vila Please click the below link to view image of tracing.
--- NOTE | 2025-04-20 11:06 | DVHPN2 ---
Reviewed: Care Plan, H&P, Medications, Previous Orders, Radiology Changes from previous H/P or p: No Changes Eyes: No Pain, No Vision change, No Conjunctivae inflammation, No Eyelid inflammation, No Other, No Redness ENT: No Ear pain, No Ear discharge, No Nose pain, No Nose discharge, No Nose congestion, No Mouth pain, No Mouth swelling, No Throat pain, No Throat swelling, No Other Cardiovascular: No Chest Pain, No Palpitations, No Orthopnea, No Paroxysmal Noc. Dyspnea, No Edema, No Lt Headedness, No Other Respiratory: Cough; No Dry; Shortness of breath; No SOB with excertion; W heezing; No Hemoptysis, No Pleuritic Pain, No Sputum; Other (SOB at rest) Gastrointestinal: No Nausea, No Vomiting, No Abdominal Pain, No Diarrhea, No Constipation, No Melena, No Hematochezia, No Other Genitourinary: No Dysuria, No Frequency, No Incontinence, No Hematuria, No Retention, No Other Musculoskeletal: No other, No neck pain, No shoulder pain, No arm pain, No back pain, No hand pain, No leg pain, No foot pain Skin: No Rash, No Lesions, No Jaundice, No Bruising, No Other Objective Vitals Vital Signs Date Time Temp Pulse Resp B/P (MAP) Pulse Ox O2 Delivery O2 Flow Rate FiO2 04/20/25 10:57 87 18 92 04/20/25 10:57 Nasal Cannula 3.0 04/20/25 10:57 32 04/20/25 09:00 98.3 129/73 (91) 98.3 Intake/Output Intake and Output 04/20/25 07:00 Intake Total 1240 ml Output Total 750 ml Balance 490 ml Intake Oral 1190 ml IV Total 50 ml Output Urine Total 750 ml Medications Current Medications Medications Dose Ordered Sig/Arnold Route Start Time Stop Time Status Last Admin Dose Admin Methylprednisolone Sodium Succinate 40 mg Q8HR IV 04/18/25 14:00 04/20/25 05:16 40 MG Famotidine 20 mg Q12HR IV 04/18/25 10:00 04/19/25 21:54 20 MG Atorvastatin Calcium 20 mg HS PO 04/18/25 22:00 04/19/25 21:54 20 MG Gabapentin 300 mg TID PO 04/18/25 06:00 04/20/25 05:16 300 MG Levalbuterol HCl 0.625 mg Q6HR NEB 04/18/25 06:00 04/20/25 10:56 0.625 MG Lorazepam 0.5 mg Q8HP PRN IV 04/18/25 05:45 04/19/25 20:29 0.5 MG Sodium Chloride 10 ml Q8HR IV 04/18/25 06:00 04/20/25 05:16 10 ML Acetaminophen/ Hydrocodone Bitart 1 tab Q4HP PRN PO 04/18/25 05:45 04/20/25 10:38 1 TAB Ondansetron HCl 4 mg Q4HP PRN IV 04/18/25 05:45 Docusate Sodium 100 mg BIDPRN PRN PO 04/18/25 05:45 04/18/25 21:45 100 MG Acetaminophen 650 mg Q6HP PRN PO 04/18/25 05:45 04/18/25 09:47 650 MG Nitroglycerin 0.4 mg Q5MINP PRN SL 04/18/25 05:45 Morphine Sulfate 2 mg Q30M PRN IV 04/18/25 05:45 Ceftriaxone Sodium 50 ml @ 100 mls/hr DAILY@09 IV 04/19/25 09:00 04/19/25 09:38 100 MLS/HR Trazodone HCl 100 mg HS PO 04/18/25 22:17 04/19/25 21:53 100 MG Quetiapine Fumarate 100 mg HS PO 04/18/25 22:17 04/19/25 21:54 100 MG Laboratory Results Laboratory Tests 04/19/25 06:50 Urinalysis Test 04/18/25 05:02 Urine Color Colorless (Yellow) Urine Clarity Turbid (Clear) H Urine pH 5.0 (5.0-9.0) Urine Specific [place] 1.021 (1.001-1.035) Urine Protein Trace (Negative) H Urine Ketones Negative (Negative) Urine Blood Negative /uL (Negative) Urine Nitrite Negative (Negative) Urine Bilirubin Negative (Negative) Urine Urobilinogen Normal mg/dL (Negative) Urine Leukocyte Esterase 2+ /uL (Negative) Urine RBC 12 /hpf (0 - 4) Urine WBC Clumps Present /hpf (None Seen) Urine Microscopic WBC 386 /HPF (0-5) H Urine Squamous Epithelial Cells None seen /hpf (<5) Urine Bacteria Few /hpf (None Seen) H Urine Glucose Normal mg/dL (Normal) Microbiology Microbiology Date/Time Source Procedure Growth Status 04/18/25 05:02 Voided Urine Urine Culture - Preliminary Resulted 04/18/25 04:00 Blood Blood Culture - Preliminary NO GROWTH AFTER 48 HOURS OF INCUBATION. Resulted Labs and/or images reviewed: Labs reviewed by me, Image(s) reviewed by me Assessment/Plan Assessment/Plan Sepsis secondary to urinary tract infection: Blood cultures negative, urine cultures growing Gram-negative rods continue Rocephin Acute COPD exacerbation: Albuterol Atrovent Solu-Medrol Acute generalized weakness Acute urinary tract infection: Acute Hypotension secondary to sepsis Depression Bipolar Anxiety Tremors of hands Acute dehydration: IV fluids Time spent 50 minutes Advanced care planning time 20 minutes Patient is full code Patient Came from [facility] Discussed with the daughter at bedside and she is agreeable for the patient to go back to [facility]. Plan discussed with: Patient My Orders Orders - AIDEN MARTINEZ MD Procedure Category Date Status Time Insert Midline ORDERS 04/20/25 Transmitted 10:59 * [employer] CONS 04/20/25 Verified Consult Date of Service: Apr 20, 2025 Billing Provider: AIDEN MARTINEZ MD Common Visit Codes: [id number] INP/OBS CARE(HIGH) AIDEN MARTINEZ MD Apr 20, 2025 11:06
--- NOTE | 2025-04-20 11:12 | DVHDS2 ---
Discharge Summary Date of Admission Apr 18, 2025 at 05:39 Date of Discharge: Apr 20, 2025 Admitting Diagnosis Generalized weakness and altered mental status Wounds: None Labs/Diagnostic Data: Laboratory Results Test 04/19/25 06:50 04/18/25 13:48 04/18/25 06:04 04/18/25 05:02 White Blood Count 14.3 10^3/uL (4.4-10.8) Red Blood Count 3.76 10^6/uL (4.0-5.20) Hemoglobin 10.7 g/dL (12.2-16.2) Hematocrit 32.9 % (36.0-46.0) Mean Corpuscular Volume 87.6 fL (80.0-100.0) Mean Corpuscular Hemoglobin 28.3 pg (28.0-32.0) Mean Corpuscular Hemoglobin Concent 32.4 g/dL (32.0-36.0) Red Cell Distribution Width 15.6 % (11.8-14.3) Platelet Count 283 10^3/uL (140-450) Mean Platelet Volume 7.2 fL (6.9-10.8) Neutrophils (%) (Auto) 90.1 % (37.0-80.0) Lymphocytes (%) (Auto) 7.8 % (10.0-50.0) Monocytes (%) (Auto) 2.0 % (0.0-12.0) Eosinophils (%) (Auto) 0.0 % (0.0-7.0) Basophils (%) (Auto) 0.1 % (0.0-2.0) Neutrophils # (Auto) 12.9 10 ^3/uL (1.6-8.6) Lymphocytes # (Auto) 1.1 10 ^3/uL (0.4-5.4) Monocytes # (Auto) 0.3 10 ^3/uL (0-1.3) Eosinophils # (Auto) 0 10 ^3/uL (0-0.8) Basophils # (Auto) 0 10 ^3/uL (0-0.2) Nucleated Red Blood Cells 0.0 % Sodium Level 144 mmol/L (136-145) Potassium Level 4.3 mmol/L (3.5-5.1) Chloride Level 101 mmol/L (98-107) Carbon Dioxide Level 34 mmol/L (20-31) Anion Gap 9 (5-15) Blood Urea Nitrogen 28 mg/dL (9-23) Creatinine 0.86 mg/dL (0.550-1.02) Glomerular Filtration Rate Calc 72 mL/min (>90) BUN/Creatinine Ratio 32.6 (10.0-20.0) Serum Glucose 150 mg/dL (74-106) Calcium Level 9.7 mg/dL (8.7-10.4) Total Bilirubin 0.2 mg/dL (0.2-1.0) Aspartate Amino Transferase (AST) 14 U/L (13-40) Alanine Aminotransferase (ALT) 9 U/L (7-40) Alkaline Phosphatase 80 U/L (46-116) Total Protein 7.0 g/dL (5.7-8.2) Albumin 4.1 g/dL (3.2-4.8) Influenza Type A Antigen Negative (Negative) Influenza Type B Antigen Negative (Negative) SARS-CoV-2 Antigen (Rapid) Negative (NEGATIVE) B-Type Natriuretic Peptide 10.65 pg/mL (0-100) Urine Color Colorless (Yellow) Urine Clarity Turbid (Clear) Urine pH 5.0 (5.0-9.0) Urine Specific [place] 1.021 (1.001-1.035) Urine Protein Trace (Negative) Urine Ketones Negative (Negative) Urine Blood Negative /uL (Negative) Urine Nitrite Negative (Negative) Urine Bilirubin Negative (Negative) Urine Urobilinogen Normal mg/dL (Negative) Urine Leukocyte Esterase 2+ /uL (Negative) Urine RBC 12 /hpf (0 - 4) Urine WBC Clumps Present /hpf (None Seen) Urine Microscopic WBC 386 /HPF (0-5) Urine Squamous Epithelial Cells None seen /hpf (<5) Urine Bacteria Few /hpf (None Seen) Urine Glucose Normal mg/dL (Normal) Test 04/18/25 04:00 Prothrombin Time 10.5 sec (9.3-11.8) Prothrombin Time INR 0.99 (0.9-1.15) Activated Partial Thromboplast Time 28.6 SEC (24.5-34.5) Lactic Acid Level 0.8 mmol/L (0.4-2.0) Other Laboratory Tests 04/19/25 06:50 Brief Hx & Hospital Course: 69-year-old female with a history of COPD recurrent urinary tract infections bipolar anxiety depression tremors of hands burden from [facility] for altered mental status generalized weakness. Found to be in sepsis secondary to urinary tract infection. Started on Rocephin blood cultures negative urine cultures growing Gram-negative rods sensitivity pending. Patient was continued on other medications for comorbidities and [facility] The plan is acceptable with the patient and her daughter he will continue albuterol Atrovent and steroids for COPD exacerbation. Consults/Reason for consult None Operations or Procedures None Condition at Discharge: Fair Final Diagnosis/Problems List Sepsis secondary to urinary tract infection: Blood cultures negative, urine cultures growing Gram-negative rods continue Rocephin Acute COPD exacerbation: Albuterol Atrovent Solu-Medrol Acute generalized weakness Acute urinary tract infection: Acute Hypotension secondary to sepsis Depression Bipolar Anxiety Tremors of hands Acute dehydration: IV fluids Discharge Disposition: Assisted Facility Discharge Instruct/Medications Diet: Regular Activity: Light activity Follow Up/Referral: Follow up with the [facility] Dr Medications: see list Rocephin 1 g IV daily for two weeks for complicated UTI Scheduled Gabapentin (Gabapentin), 1 TAB PO TID, (Reported) Ropinirole Hydrochloride (Ropinirole Hcl), 5 MG PO HS, (Reported) Tiotropium [place] Monohydrate (Spiriva Handihaler), 1 CAP INH DAILY, (Reported) Valsartan (Valsartan), 1 TAB PO DAILY, (Reported) Miscellaneous Medications Citalopram Hydrobromide (Celexa), (Reported) Omeprazole (Omeprazole Dr), Unknown Dose, (Reported) Pravastatin Sodium (Pravachol Tablet), Unknown Dose, (Reported) Quetiapine Fumerate (Quetiapine Fumarate), TAB PO, (Reported) Trazodone Hcl (Trazodone Hcl), (Reported) Discontinued Medications Anastrozole (Anastrozole), TAB PO, (Reported) Ropinirole Hydrochloride (Ropinirole Hcl), TAB PO, (Reported) 39 (Time taken for discharge summary 39 mts) Discharge Statement: "Patient was advised to return to the ER or call 911 if any headaches, dizziness, shortness of breath, chest pain, abdominal pain, bleeding, fevers, or worsening of medical condition. Patient was counseled about treatment plan, medications, possible side effects, patientverbalized understanding. All questions were answered to the best of my ability. This discharge took greater then 30 minutes in planning, reviewing documentation, counseling the patient, and discussing with other team members." ASSESSMENT ASSESSMENT Hospital Course Improved Assessment Sepsis secondary to urinary tract infection: Blood cultures negative, urine cultures growing Gram-negative rods continue Rocephin Acute COPD exacerbation: Albuterol Atrovent Solu-Medrol Acute generalized weakness Acute urinary tract infection: Acute Hypotension secondary to sepsis Depression Bipolar Anxiety Tremors of hands Acute dehydration: IV fluids Date of Service: Apr 20, 2025 Billing Provider: AIDEN MARTINEZ MD Common Visit Codes: [id number] DISCH DAY >30min AIDEN MARTINEZ MD Apr 20, 2025 11:12
--- NOTE | 2025-04-20 14:42 | MEDREC ---
[facility] Intervention Section I [facility] Intervention: Review courses of therapy ([facility] (F): E.COLI FOUND, RESISTENT TO CEFTRIAXONE - CONSIDER SWITCHING TO ALTERNATE THERAPY BASED ON SUSCEPTIBILITY REPORT) [facility] RES[facility] Apr 20, 2025 14:42
== END 2025-04-20 18:34 | DRG 871 ==
LOC: ER 03:46 → EDBD 03:46 → OVERFLOW 05:39 → TELE-EAST 15:29
PROVIDERS: ADMIT Family Medicine; ATTEND Family Medicine
PROC: 05HF33Z Insertion of Infusion Device into Left Cephalic Vein, Percutaneous Approach (ICD-10-PCS; principal; 2025-04-20)
PROC: B54NZZA Ultrasonography of Left Upper Extremity Veins, Guidance (ICD-10-PCS; 2025-04-20)
DX: A41.51 Sepsis due to Escherichia coli [E. coli] (principal); G93.41 Metabolic encephalopathy; N17.0 Acute kidney failure with tubular necrosis; J44.1 Chronic obstructive pulmonary disease with (acute) exacerbation; N39.0 Urinary tract infection, site not specified; F41.9 Anxiety disorder, unspecified; F31.9 Bipolar disorder, unspecified; F17.210 Nicotine dependence, cigarettes, uncomplicated; E86.0 Dehydration; I11.0 Hypertensive heart disease with heart failure; I50.9 Heart failure, unspecified; Z79.899 Other long term (current) drug therapy; I95.9 Hypotension, unspecified
CPT/HCPCS: 36415; 71045; 80053; 81001; 83605; 83880; 85025; 85610; 85730; 87040; 87086; 87426; 87804; 93005; 94640; 96374; 99291; G0378; J3490